=== PATIENT | female | born 2005 | race Two or more races ===

== ENCOUNTER 2024-07-27 14:02 | Emergency (ER) | payer OTHER ==
[~2024-07-27] VITALS: Ht 165.1 cm; Wt 61.7 kg
[2024-07-27] MEDS ORDERED: PRENATA CHEWAB1 EACH (15:05)
== END 2024-07-27 18:59 | disposition home or self-care (01) ==
LOC: ER 14:05
DX: O26.892 Other specified pregnancy related conditions, second trimester (principal); Z3A.20 20 weeks gestation of pregnancy; T14.8XXA Other injury of unspecified body region, initial encounter; W18.39XA Other fall on same level, initial encounter; Y93.89 Activity, other specified; Y92.89 Other specified places as the place of occurrence of the external cause; Y99.9 Unspecified external cause status